=== PATIENT | female | born 1980 | race Hispanic/Latino ===

== ENCOUNTER 2017-04-12 19:11 | Emergency (ER) | payer SELFPAY ==
[~2017-04-12] VITALS: Ht 149.9 cm; Wt 53.2 kg
[~2017-04-12 19:11] MED LIST: CIPRO500 MG OR; FERRETTS325 MG PO; LORTAB 5 OR; NO MEDS; ZOFRAN ODT4 MG PO
[2017-04-12 21:39] LABS: URINE BILIRUBIN - DIPSTICK NEGATIVE (NEGATIVE); URINE BLOOD DIPSTICK SMALL (NEGATIVE); URINE COLOR YELLOW; URINE GLUCOSE - DIPSTICK NEGATIVE (NEGATIVE); URINE KETONE 40 mg/dL (NEGATIVE); URINE NITRITE - DIPSTICK NEGATIVE (Negative); URINE PROTEIN - DIPSTICK TRACE mg/dL (NEG-TRACE); URINE UROBILINOGEN - DIPSTICK 0.2 E.U./dL (0.2)
[2017-04-12 21:40] LABS: HEMATOCRIT 30.9 % (37.0-47.0); HEMOGLOBIN 9.1 g/dl (12.0-16.0); IMMATURE GRANULOCYTES 0.3 % (0.0-1.0); MEAN CELL VOLUME 70.1 fL CALC (80.0-100.0); MEAN CORPUSCULAR HGB 20.6 pG CALC (26.0-32.0); MEAN CORPUSCULAR HGB CONC 29.4 g/L CALC (32.0-36.0); NEUT# 5.62 thou/uL (2.00-7.15); RED BLOOD COUNT 4.41 mill/uL (4.20-5.60); RED CELL DISTRI WIDTH 16.8 % (11.5-15.5)
[2017-04-12 21:42] LABS: URINE CLARITY CLEAR; URINE LEUK ESTERASE SMALL (NEGATIVE)
[2017-04-12 21:50] LABS: URINE MUCUS FEW hpf (NONE-FEW); URINE SQUAMOUS EPITHELIAL CELL FEW EPI/hpf (0-FEW)
[2017-04-12 21:52] LABS: ALKALINE PHOSPHATASE 86 u/l (38-126); ANION GAP 17 (6-22 (CALC)); BILIRUBIN, TOTAL 0.4 mg/dL (0.0-1.4); BUN 10 mg/dL (7-17); BUN/CREATININE RATIO 21 (12-20 (CALC)); CALCIUM 10.2 mg/dL (8.4-10.2); CARBON DIOXIDE 24 mmol/l (22-30); CHLORIDE 106 mmol/l (95-108); CREATININE 0.5 mg/dL (0.5-1.0); GFR > 60 ML/MIN (>=60 (CALC)); GFR FOR AFR.AMER. > 60 ML/MIN (>=60 (CALC)); GLUCOSE 110 mg/dL (65-105); POTASSIUM 4.5 mmol/l (3.5-5.1); SGOT/AST 31 u/l (14-36); SGPT/ALT 40 u/l (9-52); SODIUM 143 mmol/l (137-146)
[2017-04-12] MEDS ORDERED: CIPROFLOXACN500 MG PO (22:14)
[2017-04-12] MEDS ORDERED: ULTRAM50 M1 PO (22:14)
[2017-04-12] MEDS ORDERED: ZOFRAN ODT4 MG PO (22:14)
[2017-04-12 22:17] VITALS: BP 115/64
== END 2017-04-12 22:26 | disposition home or self-care (01) | DRG 103 ==
LOC: ED 19:11
PROVIDERS: Emergency Medicine
DX: R51 Headache (principal); N39.0 Urinary tract infection, site not specified; E07.9 Disorder of thyroid, unspecified

== ENCOUNTER 2019-09-24 06:54 | Emergency (ER) | payer MEDICAID ==
[~2019-09-24] VITALS: Ht 154.9 cm; Wt 58.6 kg
[~2019-09-24 06:54] MED LIST changes: +CIPROFLOXACN500 MG PO; +ULTRAM50 M1 PO
[2019-09-24 07:39] LABS: IMMATURE GRANULOCYTES 0.3 % (0.0-5.0); MEAN CORPUSCULAR HGB 26.6 pG CALC (26.0-32.0); MEAN CORPUSCULAR HGB CONC 32.2 g/dL CAL (32.0-36.0); NEUT# 2.13 thou/uL (2.00-7.15); RED BLOOD COUNT 2.07 mill/uL (4.20-5.60); RED CELL DISTRI WIDTH 14.5 % (11.5-15.5)
[2019-09-24 07:51] LABS: HEMATOCRIT 17.1 % (37.0-47.0); HEMOGLOBIN 5.5 g/dl (12.0-16.0); MEAN CELL VOLUME 82.6 fL CALC (80.0-100.0)
[2019-09-24 07:55] LABS: BUN 9 mg/dL (7-17); BUN/CREATININE RATIO 22 (12-20 (CALC)); CARBON DIOXIDE 24 mmol/l (22-30); CHLORIDE 107 mmol/l (95-108); CREATININE 0.4 mg/dL (0.5-1.0); GFR > 60 ML/MIN (>=60 (CALC)); GFR FOR AFR.AMER. > 60 ML/MIN (>=60 (CALC)); POTASSIUM 3.6 mmol/l (3.5-5.1)
[2019-09-24 07:56] LABS: ANION GAP 8 (6-22 (CALC)); SODIUM 135 mmol/l (137-146)
[2019-09-24 09:39] VITALS: BP 105/73
[2019-09-24 09:56] VITALS: BP 112/56
[2019-09-24 10:11] VITALS: BP 110/67
[2019-09-24 10:56] VITALS: BP 103/59
[2019-09-24 11:29] VITALS: BP 108/62
[2019-09-24 11:30] VITALS: BP 108/62
== END 2019-09-24 11:30 | disposition short-term general hospital (02) | DRG 760 ==
LOC: ED 06:54
PROVIDERS: Student in an Organized Health Care Education/Training Program
PROC: 30233N1 Transfusion of Nonautologous Red Blood Cells into Peripheral Vein, Percutaneous Approach (ICD-10-PCS; principal; 2019-09-24)
DX: N92.1 Excessive and frequent menstruation with irregular cycle (principal); D62 Acute posthemorrhagic anemia
CPT/HCPCS: P9016

== ENCOUNTER 2020-05-04 17:19 | Emergency (ER) | payer MEDICAID ==
[~2020-05-04] VITALS: Ht 154.9 cm; Wt 50.0 kg
[2020-05-04 18:33] LABS: MEAN CORPUSCULAR HGB 30.2 pG CALC (26.0-32.0); NEUT# 1.21 thou/uL (2.00-7.15); RED BLOOD COUNT 3.84 mill/uL (4.20-5.60); RED CELL DISTRI WIDTH 11.6 % (11.5-15.5)
[2020-05-04 18:51] LABS: HEMATOCRIT 34.1 % (37.0-47.0); HEMOGLOBIN 11.6 g/dl (12.0-16.0); MEAN CELL VOLUME 88.8 fL CALC (80.0-100.0)
[2020-05-04 18:54] LABS: ALKALINE PHOSPHATASE 88 u/l (38-126); ANION GAP 9 (6-22 (CALC)); BILIRUBIN, TOTAL 0.4 mg/dL (0.0-1.4); BUN 9 mg/dL (7-17); BUN/CREATININE RATIO 20 (12-20 (CALC)); CARBON DIOXIDE 27 mmol/l (22-30); CHLORIDE 103 mmol/l (95-108); CREATININE 0.5 mg/dL (0.5-1.0); GFR > 60 ML/MIN (>=60 (CALC)); GFR FOR AFR.AMER. > 60 ML/MIN (>=60 (CALC)); POTASSIUM 3.8 mmol/l (3.5-5.1); SODIUM 136 mmol/l (137-146); TOTAL PROTEIN 6.5 g/dL (6.3-8.2)
[2020-05-04 18:57] LABS: ALBUMIN 3.6 g/dL (3.2-5.0); SGOT/AST 84 u/l (14-36)
[2020-05-04 19:15] LABS: URINE BILIRUBIN - DIPSTICK NEGATIVE (NEGATIVE); URINE BLOOD DIPSTICK NEGATIVE (NEGATIVE); URINE COLOR YELLOW; URINE GLUCOSE - DIPSTICK NEGATIVE (NEGATIVE); URINE KETONE 40 mg/dL (NEGATIVE); URINE NITRITE - DIPSTICK NEGATIVE (Negative); URINE PH 7.5 (4.5-8.0); URINE PROTEIN - DIPSTICK NEGATIVE (NEG-TRACE); URINE SPECIFIC GRAVITY 1.025
[2020-05-04 19:16] LABS: URINE LEUK ESTERASE SMALL (NEGATIVE)
[2020-05-04 19:24] LABS: URINE AMORPH SEDIMENT MANY hpf (NONE-FEW); URINE RBC 0-2 RBC/hpf (0-5); URINE SQUAMOUS EPITHELIAL CELL FEW EPI/hpf (0-FEW)
[2020-05-04 19:31] VITALS: BP 130/75
[2020-05-04] MEDS ORDERED: ZOFRAN4 MG/TAB PO (19:45)
--- NOTE | 2020-05-05 14:01 | NUR ---
RECD CONSULT FOR BAMLANIVIMAB. HOWEVER, PT IS NOT A CANDIDATE, DOES NOT HAVE ANY HIGH RISK FACTORS SUCH CKD, DIABETES, OR IMMUNOSUPPRESSIVE DISEASE AND PT IS ONLY 39 Y/O.
== END 2020-05-04 20:10 | disposition home or self-care (01) ==
LOC: ED 17:19
PROVIDERS: Student in an Organized Health Care Education/Training Program
DX: U07.1 COVID-19 (principal); R11.2 Nausea with vomiting, unspecified; R53.1 Weakness; D64.9 Anemia, unspecified

== ENCOUNTER 2022-08-05 15:00 | Emergency (ER) | payer MEDICAID ==
[~2022-08-05] VITALS: Ht 149.9 cm; Wt 55.8 kg
[2022-08-05] VITALS (24 sets, daily range): BP systolic 104–124; BP diastolic 39–79
[~2022-08-05 15:00] MED LIST changes: +ZOFRAN4 MG/TAB PO
[2022-08-05 16:07] LABS: BASO% 0.5 % (0-3); IMMATURE GRANULOCYTES 0.2 % (0.0-5.0); LYMPH% 35.6 % (15-41); MEAN CORPUSCULAR HGB 19.6 pG CALC (26.0-32.0); MEAN CORPUSCULAR HGB CONC 27.8 g/dL CAL (32.0-36.0); MONO% 7.4 % (2-13); NEUT# 2.31 thou/uL (2.00-7.15); NEUT% 55.3 % (42-76); RED BLOOD COUNT 3.01 mill/uL (4.20-5.60)
[2022-08-05 16:18] LABS: HEMATOCRIT 21.2 % (37.0-47.0); HEMOGLOBIN 5.9 g/dl (12.0-16.0); MEAN CELL VOLUME 70.4 fL CALC (80.0-100.0)
[2022-08-05 16:20] LABS: ALBUMIN 4.3 g/dL (3.2-5.0); ALKALINE PHOSPHATASE 83 u/l (38-126); ANION GAP 13 (6-22 (CALC)); BUN 14 mg/dL (7-17); BUN/CREATININE RATIO 26 (12-20 (CALC)); CARBON DIOXIDE 25 mmol/l (22-30); CHLORIDE 104 mmol/l (95-108); CREATININE 0.5 mg/dL (0.5-1.0); GFR FOR AFR.AMER. > 60 ML/MIN (>=60 (CALC)); GFR OTHER RACES > 60 ML/MIN (>=60 (CALC)); POTASSIUM 4.3 mmol/l (3.5-5.1); SGOT/AST 44 u/l (14-36); SODIUM 138 mmol/l (137-146)
== END 2022-08-05 22:19 | disposition short-term general hospital (02) ==
LOC: ED 15:00
PROVIDERS: Nurse Practitioner
DX: N92.1 Excessive and frequent menstruation with irregular cycle (principal); D62 Acute posthemorrhagic anemia
CPT/HCPCS: P9016